=== PATIENT | male | born 1935 | race Caucasian/White ===

== ENCOUNTER 2017-05-12 00:13 | Day surgery (SDC) | payer MEDICARE, MEDICAID ==
[~2017-05-12] VITALS: Ht 170.2 cm; Wt 113.0 kg
[2017-05-12] VITALS (14 sets, daily range): BP systolic 150–185; BP diastolic 60–94; PULSE 70–80; RESP 15–20; O2SAT 88–97
[~2017-05-12 00:13] MED LIST: ACET325T51 PO; ASPI-973 PO; CHOL10008 PO; CHOL4PAC PO; FURO40TA4 PO; HYDR-4003 PO; LACT1CAP65 PO; LIP40 PO; LOSA50TA37 PO; METF500T4 PO; METO25TA6 PO; MULT1CAP33 PO; POTA10CA42 PO; TAMS0.4C98 PO
--- NOTE | 2017-05-12 09:00 | NUR ---
ADMISSION NOTE MALE PT ADMITTED FOR ANGIOGRAM WITH ANGIOPLASTY. SEE ADMIT AND FLOW SHEET
[2017-05-12 09:20] LABS: BASOPHILS % (AUTO) 0.5 % (0-3); EOSINOPHILS % (AUTO) 6.5 % (0-5); MONOCYTES % (AUTO) 10.4 % (4-12); Mean Corpuscular Hemoglobin 25.3 pg (27.0-35.0); Mean Corpuscular Volume 88.2 fL (81-100); NEUTROPHILS % (AUTO) 65.6 % (40-74); Platelet Count 298 bil/L (150-400)
--- NOTE | 2017-05-12 09:30 | NUR ---
#[id number] CC PERAZA INSERTED
[2017-05-12] MEDS ORDERED: METO25TA6 PO (09:47)
[2017-05-12] MEDS ORDERED: GABA-502 PO (09:47)
[2017-05-12 10:06] LABS: INR 0.99 ratio
[2017-05-12] MEDS ORDERED: Heparin 10,000 Unit/1,000 mL NS Premix IV ONE ×2 (10:59→11:59)
[2017-05-12] MEDS ORDERED: Heparin 1,000 Unit/mL 10 mL Inj ONE (10:59)
[2017-05-12] MEDS ORDERED: fentaNYL-PF 50 mCg/mL 2 mL Inj ONE (11:08)
--- NOTE | 2017-05-12 12:48 | NUR ---
POST PROCEDURE NOTE RETURNED FROM EXTRUSION OPERATOR. SEE FLOW SHEET
--- NOTE | 2017-05-12 13:40 | DRSVH ---
PROCEDURE: ANGIO, LE, UNILATERAL INDICATIONS: LT. FOOT ULCER COMPARISON: None. Fluoroscopy time: 12.2 minutes. Technique: 1. Conscious sedation for 60 minutes. 2. Antegrade access of the left common femoral artery. 3. Left lower extremity arteriogram. 4. Angioplasty of a focal high-grade stenosis within the left popliteal artery. 5. Angioplasty the focal high-grade stenosis within the distal left superficial femoral artery. 6. Completion arteriogram. 7. Sheath removal, closure device placement, and hemostasis. The indications, alternatives, benefits, risks, and complications of the procedure were explained to the patient and his stepson. Informed written consent was obtained and placed in the chart. The corry ent was brought to the angiography suite, and conscious sedation was administered intravenously [facility], while continuous cardiorespiratory monitoring was performed. Maximum sterile barrier technique was employed per standard protocol, including hand hygiene, cap, ma sk, sterile gown and gloves, and 2% chlorhexidine. One percent lidocaine was used to anesthetize the skin over the area of interest. Using a micropuncture sheath, the left common femoral artery was acce ssed in an antegrade fashion. An 035 wire was advanced into the distal SFA. The micropuncture sheath was exchanged for a 5 Somali sheath. With the aid of a [employer] catheter a glide advantage wire was adva nced into the peroneal artery. Angiogram was performed. Balloon angioplasty with a 4 mm x 40 mm high-pressure balloon was performed for a focal high-grade st enosis within the infrageniculate left popliteal artery. Completion arteriogram was performed. Next, balloon angioplasty with a 5 mm x 40 mm high-pressure balloon was performed for a focal high-grade st enosis within the distal SFA. Completion arteriogram was performed. A small subintimal dissection was noted at the angioplasty site in the SFA and the balloon was deployed to nominal pressure prior to r emoval of the balloon. FINDINGS: Initial arteriogram demonstrates white patency of the visualized portions of the left comm on femoral artery, profunda artery, and superficial femoral artery. A focal high-grade stenosis is pr esent within the distal SFA. A focal high-grade stenosis is present within the infrageniculate poplit eal artery. There is diffuse mural irregularity throughout the peroneal artery. The anterior tibial a rtery is diminutive and midcalf. 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 The anterior tibial artery is reconstituted at the level of the ank le as well. Completion arteriogram demonstrates resolution of the popliteal and superficial femoral artery stenos es. There is a small intimal dissection at the superficial femoral artery angioplasty site without ex travasation. IMPRESSION: 1. Status post successful angioplasty of a high-grade stenosis in the infrageniculate left popliteal artery. 2. Status post angioplasty of a focal high-grade stenosis within the left superficial popliteal arter y. 3. Single vessel left lower extremity runoff with reconstitution at the ankle of the posterior and an terior tibial arteries. Dictated by: Armida Armstrong M.D. on 05/12/2017 at 13:30 Approved by: Armida Armstrong M.D. on 05/12/2017 at 13:38
--- NOTE | 2017-05-12 16:52 | NUR ---
DISCHARGE NOTE. UP AT BEDSIDE, TOLERATED WELL. WOUND SITE STABLE. INSTRUCTIONS GIVEN. IVS REMOVED HOME WITH SON
[2017-05-12] MEDS ORDERED: HYDROcodone-APAP 5-325 mg Tablet PO ONE (17:03)
[2017-05-12] MEDS ORDERED: 0.9% Sodium Chloride 250 ML BOLUS IV PRN (18:30)
[2017-05-12] MEDS ORDERED: Ondansetron 2 mg/mL 2 mL Inj IVPUSH PRN (18:30)
[2017-05-12] MEDS ORDERED: 0.9% Sodium Chloride 400 ML (4 HRS) IV ONE (18:30)
[2017-05-12] MEDS ORDERED: Atropine 1 mg/10 mL (Code) Syringe IVPUSH PRN (18:30)
[2017-05-12] MEDS ORDERED: Sodium Chloride LOK Flush 10 mL Syringe IVFLUSH PRN (18:30)
[2017-05-12] MEDS ORDERED: HYDROcodone-APAP 5-325 mg Tablet PO PRN (18:30)
== END 2017-05-12 23:59 | disposition home or self-care (01) ==
LOC: SPI 00:13
PROVIDERS: ATTEND Radiology Vascular & Interventional Radiology
DX: I70.245 Atherosclerosis of native arteries of left leg with ulceration of other part of foot (principal); L97.529 Non-pressure chronic ulcer of other part of left foot with unspecified severity
CPT/HCPCS: 36415; 37224; 75710; 80048; 85025; 85610; 99152; 99153; C1725; C1760; C1769; J1644; J2250; J3010; J7030; Q9967

== ENCOUNTER 2017-05-26 00:17 | Day surgery (SDC) | payer MEDICARE, MEDICAID ==
[~2017-05-26 00:17] MED LIST changes: +GABA-502 PO
[2017-05-26 13:51] VITALS: BP 136/56; PULSE 89; RESP 18; O2SAT 96
--- NOTE | 2017-05-26 16:42 | DRSVH ---
PROCEDURE: RADIOLOGIST CONSULT FOLLOW UP COMPARISON: None. ID & CHIEF COMPLAINT: Mr. Pillai is an 82-year-old gentleman who presents after recent left lower extremity angioplasty for a nonhealing lateral left foot ulcer. HISTORY OF PRESENT ILLNESS: The patient states he has done well after recent angioplasty. His left fo ot ulcer has demonstrated interval improvement at the last [facility] visit. He will see the [facility] again this to evaluate for continued improvement in his wound healing. SOCIAL HISTORY: The patient is a heavy chewing tobacco user. Today we spent 15 minutes discussing why he should continue to stop using chewing tobacco both related to his overall health and the healing of his left foot ulcer. MEDICATIONS: Medication list on file (in PACS documents) and reviewed. IMPRESSION: In summary, Mr. Pillai has done well after recent percutaneous angioplasty of multiple stenoses w ithin the left lower extremity in an attempt to aid in wound healing of the left lateral foot ulcer. Today we discussed the fact that the results of angioplasty will last with varying success from 6 mon ths to 5 years, and that he may need angioplasty again in the future if this wound persists, or if he develops another ulcer in the future. Thank you for this interesting consult. Dictated by: Armida Armstrong M.D. on 05/26/2017 at 16:36 Approved by: Armida Armstrong M.D. on 05/26/2017 at 16:39
== END 2017-05-26 23:59 | disposition home or self-care (01) ==
LOC: SOUO 00:17
PROVIDERS: ATTEND Radiology Vascular & Interventional Radiology
DX: Z09 Encounter for follow-up examination after completed treatment for conditions other than malignant neoplasm (principal); Z98.62 Peripheral vascular angioplasty status; Z72.0 Tobacco use; L97.529 Non-pressure chronic ulcer of other part of left foot with unspecified severity